=== PATIENT | female | born 1960 | race Caucasian/White ===

== ENCOUNTER → 2019-09-19 | Outpatient (CLI) | payer OTHER ==
[~2019-09-19] MED LIST: ANTACID500 MG PO; CITRATE OF MAG296 ML PO; DOXYCYCLINE 10100 M1 PO; LEVAQUIN 500 M500 M3 PO; LIPITOR; LIPITOR20 MG PO; OMEPRAZOLE40 MG PO; PHENERGAN 25 MG25 M1 PO; PHENERGAN25 M2 RE
== END ==
LOC: CAT 11:19
DX: Z13.6 Encounter for screening for cardiovascular disorders (principal); E78.00 Pure hypercholesterolemia, unspecified; I25.10 Atherosclerotic heart disease of native coronary artery without angina pectoris

== ENCOUNTER → 2020-07-07 | Outpatient (CLI) | payer OTHER | LOC: SJCVCIMAG 07:02 | PROVIDERS: ATTEND Internal Medicine Cardiovascular Disease | DX: I08.8 Other rheumatic multiple valve diseases (principal); I49.1 Atrial premature depolarization; Z90.710 Acquired absence of both cervix and uterus; Z82.49 Family history of ischemic heart disease and other diseases of the circulatory system ==